=== PATIENT | female | born 1960 | race Caucasian/White ===

== ENCOUNTER 2018-04-05 16:39 | Emergency (ER) | payer MEDICAID ==
[~2018-04-05] VITALS: Ht 154.9 cm; Wt 61.2 kg
[2018-04-05 16:45] VITALS: Ht 154.9 cm; Wt 61.2 kg
[2018-04-05 19:41] VITALS: BP 143/78
== END 2018-04-05 19:41 | disposition home or self-care (01) ==
LOC: ED 16:39
DX: S82.54XA Nondisplaced fracture of medial malleolus of right tibia, initial encounter for closed fracture (principal); I10 Essential (primary) hypertension; E11.9 Type 2 diabetes mellitus without complications; W18.39XA Other fall on same level, initial encounter; Y93.E9 Activity, other interior property and clothing maintenance; Y92.098 Other place in other non-institutional residence as the place of occurrence of the external cause; Y99.8 Other external cause status

== ENCOUNTER 2018-04-12 15:01 | Emergency (ER) | payer MEDICAID ==
[~2018-04-12] VITALS: Ht 154.9 cm; Wt 61.2 kg
[2018-04-12 15:09] VITALS: Ht 154.9 cm; Wt 61.2 kg
[2018-04-12 17:22] VITALS: BP 135/75
== END 2018-04-12 17:02 | disposition home or self-care (01) ==
LOC: ED 15:01
DX: S90.421A Blister (nonthermal), right great toe, initial encounter (principal); E11.9 Type 2 diabetes mellitus without complications; I10 Essential (primary) hypertension; X58.XXXA Exposure to other specified factors, initial encounter; Y93.89 Activity, other specified; Y92.89 Other specified places as the place of occurrence of the external cause; Y99.8 Other external cause status
CPT/HCPCS: 82962